=== PATIENT | female | born 1955 | race Caucasian/White ===

== ENCOUNTER 2017-08-23 05:20 | Inpatient (IN) | payer BC ==
[2017-08-11 11:56] VITALS: BMI 32.0
[2017-08-11 12:05] LABS: BASO % 0.6 %; BASO ABS # 0.05 K/uL (0-0.2); EOS % 2.9 %; EOS ABS # 0.23 K/uL (0-0.5); HEMATOCRIT 42.8 % (37-47); HEMOGLOBIN 14.3 g/dL (12.0-16.0); IG# 0.01 K/uL (0.00-0.02); LYMPH % 39.2 %; LYMPH ABS # 3.06 K/uL (1.2-3.4); MEAN CELL VOLUME 89.5 fL (80-100); MEAN CORPUSCULAR HEMOGLOBIN 29.9 pg (25-34); MEAN CORPUSCULAR HGB CONC 33.4 g/dl (32-36); MEAN PLATELET VOLUME 9.7 fL (7.4-10.4); MONO % 7.7 %; NEUT % 49.5 %; NEUT ABS # 3.85 K/uL (1.4-6.5); PLATELET COUNT 348 K/uL (130-400); RED CELL DISTRIBUTION WIDTH CV 14.2 % (11.5-14.5); RED CELL DISTRIBUTION WIDTH SD 46.8 fL (36.4-46.3)
[2017-08-11 12:14] LABS: INR 0.9 (0.9-1.1); PTT PATIENT 24.1 SECONDS (21.0-31.0)
--- NOTE | 2017-08-11 12:30 | PAT Medication Instructions ---
Service Date Aug 11, 2017. Current Home Medication List Acetaminophen (Tylenol), 1,000 MG PO UD PRN for Pain Naproxen (Aleve), 220 MG PO UD PRN for Pain Paroxetine (Paxil), 20 MG PO QPM Medication Instructions For Your Scheduled Surgery -Follow your surgeon's instructions for: Naproxen (Aleve), 220 MG PO UD PRN for Pain - Take the following medications the morning of surgery with a sip of water: Acetaminophen (Tylenol), 1,000 MG PO UD PRN for Pain (if needed, can be taken up to four hours before surgery) - Take the following medications as scheduled the night before surgery: Paroxetine (Paxil), 20 MG PO QPM Acetaminophen (Tylenol), 1,000 MG PO UD PRN for Pain (if needed) If you have any questions please call us at [phone] or [phone] or [phone]
[2017-08-11 12:41] LABS: HEMOGLOBIN A1C 5.8 % (4.5-5.6)
--- NOTE | 2017-08-11 13:02 | DIAGNOSTIC IMAGING REPORT ---
CHEST 2 VIEWS ROUTINE HISTORY: 61 years-old Female PAT preoperative exam. No acute chest complaints COMPARISON: None available TECHNIQUE: PA and lateral views of the chest FINDINGS: Cardiomediastinal and hilar silhouettes are within normal limits. There is no pneumothorax, pleural effusion, focal airspace consolidation or overt pulmonary edema. Degenerative changes are seen within the shoulders and spine. Minimal sigmoidal scoliosis of the spine. IMPRESSION: No acute process. The above report was generated using voice recognition software. It may contain grammatical, syntax or spelling errors. Electronically signed by: Abhishek Koroma M.D. 08/11/2017 1:01 PM Dictated Date/Time: 08/11/2017 1:00 PM
[2017-08-11 13:35] LABS: ALBUMIN 3.9 gm/dl (3.4-5.0); CALCIUM 9.3 mg/dl (8.5-10.1); CREATININE 0.93 mg/dl (0.60-1.20); POTASSIUM 4.1 mmol/L (3.5-5.1)
--- NOTE | 2017-08-11 15:02 | HISTORY & PHYSICAL EXAMINATION ---
DATE OF ADMISSION: 08/23/2017 CHIEF COMPLAINT: Right knee pain. HISTORY OF PRESENT ILLNESS: Rafael is a 61-year-old female with a multiple year history of right knee pain. The patient rates her pain as 7/10. She has pain with her daily activities. She has limited standing and walking tolerance. Pain is worse with weightbearing. The patient has had injections, bracing, home exercise program, and Aleve without relief. She has failed conservative treatment and is scheduled for right knee replacement with Dr. Godoy. PAST MEDICAL HISTORY: Anxiety. She denies heart disease, diabetes or DVT. PAST SURGICAL HISTORY: Tubal ligation, tubal reversal. SOCIAL HISTORY: The patient denies alcohol use. She quit smoking in 2018. She lives in a 2-story home. She is and retired. FAMILY HISTORY: Negative for DVT. MEDICATIONS: Paxil 20 mg daily, Aleve p.r.n. ALLERGIES: None. REVIEW OF SYSTEMS: See HPI. Ten other systems reviewed, all negative. PHYSICAL EXAMINATION: VITAL SIGNS: Height 5 feet 4 inches, weight 184 pounds, BMI 32. GENERAL: This is a well-developed, well-nourished female who is alert and oriented x3. Mood and affect are appropriate. HEENT: Normocephalic, atraumatic. Mucous membranes are moist and intact. NECK: Supple without lymphadenopathy. HEART: Regular rate and rhythm without murmurs, rubs or gallops. LUNGS: Clear to auscultation without wheezes or rhonchi. ABDOMEN: Soft and nontender. Bowel sounds are equal and active. EXTREMITIES: No ecchymosis, redness or warmth. Thigh and calf are soft and nontender. She has varus deformity. Range of motion is from 5-110 degrees with +1 laxity. She is neurovascularly intact with +5/5 strength. She has medial joint line tenderness. IMPRESSION: Degenerative joint disease, right knee. PLAN: The patient will be admitted for a right total knee arthroplasty. We will plan on aspirin for DVT prophylaxis. The patient will likely do home health upon discharge.
[~2017-08-23] VITALS: Ht 160 cm; Wt 83.1 kg
[2017-08-23] VITALS (9 sets, daily range): BP systolic 102–142; BP diastolic 53–80; PULSE 67–84; TEMP 36.5–37.2; O2SAT 94–99; Ht 160 cm; Wt 83.1 kg
[~2017-08-23 05:20] MED LIST: ACET-1256 PO; NAPR1TAB9 PO; PARO1TAB27 PO
[2017-08-23] MEDS ORDERED: LACTATED RINGER'S 1000ML 1,000 ML IV SCH (06:00)
[2017-08-23] MEDS ORDERED: METOCLOPRAMIDE HCL 10 MG TAB PO SCH (06:00)
[2017-08-23] MEDS ORDERED: ROPIVACAINE 5MG/ML 30 ML 150 MG, BUPIVACAINE 0.5% MPF INJ 30 ML, EpINEphrine HCL INJ 0.... INFIL SCH ×8 (06:00)
[2017-08-23] MEDS ORDERED: CeleBREX 200 MG CAP PO SCH (06:00)
[2017-08-23] MEDS ORDERED: GABAPENTIN 600 MG PO SCH (06:00)
[2017-08-23] MEDS ORDERED: ACETAMINOPHEN 500 MG TAB PO SCH (06:00)
[2017-08-23] MEDS ORDERED: FAMOTIDINE 20 MG TAB PO SCH (06:00)
[2017-08-23] MEDS ORDERED: CEFAZOLIN 2000MG IV PUSH 15 ML IV SCH (06:00)
[2017-08-23] MEDS ORDERED: DEXAMETHASONE 4 MG TAB PO SCH (06:00)
[2017-08-23] MEDS: TRANEXAMIC ACID INJ 1,000 MG x 2 Bags IV SCH ×4 (06:30→06:50)
[2017-08-23] MEDS ORDERED: BUPIVACAINE 0.5 % 5 MG/1 ML PF 10ML VIAL ONE (06:31)
[2017-08-23] MEDS ORDERED: ROPIVACAINE 0.5% 5 MG/ML 30 ML VIAL ONE (06:31)
[2017-08-23] MEDS ORDERED: MIDAZOLAM HCL 1 MG/ML 2ML VIAL ONE (06:40)
[2017-08-23] MEDS ORDERED: ORTHO JOINT ANESTHETIC ONE (06:57)
[2017-08-23] MEDS ORDERED: BACITRACIN 50000 UNIT VIAL ONE (06:58)
[2017-08-23] MEDS ORDERED: POVIDONE-IODINE OP SOLN 30 ML BTL ONE (06:58)
--- NOTE | 2017-08-23 07:03 | History & Physical Bridge Note ---
H&P Re-Evaluation Bridge Note: I have examined the patient, reviewed the History & Physical and in the interval since the performance of the History & Physical I have noted the following changes of clinical significance: No changes noted
[2017-08-23] MEDS ORDERED: DEXAMETHASONE SOD INJ 4 MG/ML VIAL ONE (07:32)
[2017-08-23] MEDS ORDERED: PROPOFOL IV EMULSION 10 MG/ML 20 ML VIAL IV ONE (07:32)
[2017-08-23] MEDS ORDERED: ONDANSETRON INJ 2 MG/ML 2 ML VIAL ONE (07:34)
[2017-08-23] MEDS ORDERED: MEPERIDINE HCL 25 MG/ML CARP IV PRN (08:45)
[2017-08-23] MEDS ORDERED: ONDANSETRON INJ 2 MG/ML 2 ML VIAL IV PRN ×2 (08:45→09:00)
[2017-08-23] MEDS ORDERED: HYDROmorphone INJ 1 MG/ML SYR IV PRN (08:45)
[2017-08-23] MEDS ORDERED: ATROPINE SULFATE 0.1 MG/ML 5ML SYR IV PRN (08:45)
[2017-08-23] MEDS ORDERED: LABETALOL HCL IV 5 MG/ML 20ML IV PRN (08:45)
[2017-08-23] MEDS ORDERED: EpHEDrine SULFATE INJ 50 MG/ML AMP IV PRN (08:45)
[2017-08-23] MEDS ORDERED: FENTANYL CITRATE INJ 50 MCG/1 ML 2 ML VIAL IV PRN (08:45)
--- NOTE | 2017-08-23 08:53 | [facility] Post Operative Brief Note ---
Immediate Operative Summary Operative Date Aug 23, 2017. Pre-Operative Diagnosis Right knee DJD Post-Operative Diagnosis Right knee DJD Procedure(s) Performed Right TKA Surgeon Dr. Godoy Admissions Consultant Surgeon(s) Maria Del Rosario Vela PA-C Estimated Blood Loss 50 Findings Consistent with Post-Op Diagnosis Fluids (cc crystalloids) 1200 Specimens none Drains None Anesthesia Type MAC Spinal Regional Complication(s) none Disposition Accompanied Pt To Recover: no Disposition: Recovery Room / PACU
[2017-08-23] MEDS: PANTOprazole SOD 40 MG TAB PO SCH (09:00)
[2017-08-23] MEDS ORDERED: MoRPHine SULFATE 4 MG/ML 1 ML CARP\\VIAL IV PRN (09:00)
[2017-08-23] MEDS: MULTIVITAMIN TAB PO SCH (09:00)
--- NOTE | 2017-08-23 09:49 | DIAGNOSTIC IMAGING REPORT ---
R KNEE 1 OR 2 VIEWS ROUTINE CLINICAL HISTORY: Postoperative evaluation. Right knee osteoarthritis. COMPARISON: None FINDINGS: Alignment of the total right knee arthroplasty is anatomic. There is no fracture or unexpected radiopaque foreign body. IMPRESSION: Expected findings following total right knee arthroplasty. Electronically signed by: Ash Horan M.D. 08/23/2017 9:48 AM Dictated Date/Time: 08/23/2017 9:48 AM
--- NOTE | 2017-08-23 13:50 | Anesthesiology Progress Note ---
Anesthesia Post Op Note Date & Time Aug 23, 2017 at 13:50 Vital Signs Pain Intensity: 0.0 Vital Signs Past 12 Hours Date Time Temp Pulse Resp B/P (MAP) Pulse Ox O2 Delivery O2 Flow Rate FiO2 08/23/17 12:51 36.6 84 16 104/62 (76) 97 2.0 08/23/17 11:55 78 16 115/53 (73) 98 2.0 08/23/17 11:11 74 16 112/66 (81) 98 2.0 08/23/17 10:45 Nasal Cannula 2.0 08/23/17 10:45 Nasal Cannula 2.0 08/23/17 10:45 37.0 83 16 112/68 (83) 94 Nasal Cannula 2.0 08/23/17 10:34 78 18 99 08/23/17 10:34 78 18 08/23/17 10:31 105/61 08/23/17 10:29 76 16 08/23/17 10:29 76 16 98 08/23/17 10:26 116/58 08/23/17 10:24 77 15 08/23/17 10:24 77 15 98 08/23/17 10:23 81 17 97 08/23/17 10:23 81 17 08/23/17 10:21 111/62 08/23/17 10:20 36.6 78 16 111/62 (78) 98 Nasal Cannula 2 08/23/17 10:18 75 16 08/23/17 10:18 75 16 98 08/23/17 10:17 74 16 99 08/23/17 10:17 74 16 08/23/17 10:16 108/53 08/23/17 10:12 73 15 98 08/23/17 10:12 73 15 08/23/17 10:11 115/59 08/23/17 10:08 74 16 98 08/23/17 10:08 74 16 08/23/17 10:06 115/61 08/23/17 10:03 72 17 08/23/17 10:03 72 17 100 08/23/17 10:01 109/60 08/23/17 09:58 72 14 08/23/17 09:58 71 14 100 08/23/17 09:56 110/57 08/23/17 09:53 71 15 08/23/17 09:53 71 15 100 08/23/17 09:51 110/58 08/23/17 09:48 73 16 08/23/17 09:48 74 16 100 08/23/17 09:46 106/60 08/23/17 09:43 76 26 100 08/23/17 09:43 75 26 08/23/17 09:41 106/57 08/23/17 09:38 74 15 08/23/17 09:38 74 15 100 08/23/17 09:36 103/59 08/23/17 09:33 76 14 08/23/17 09:33 75 14 100 08/23/17 09:31 104/60 08/23/17 09:28 75 23 08/23/17 09:28 75 23 100 08/23/17 09:26 97/52 08/23/17 09:24 107/50 08/23/17 09:23 78 17 100 08/23/17 09:23 78 17 08/23/17 09:23 36.1 76 18 107/50 (62) 100 Oxymask 10 08/23/17 05:52 37.1 75 18 142/80 98 Room Air Notes Mental Status: alert / awake / arousable, participated in evaluation Pt Amnestic to Procedure: Yes Nausea / Vomiting: adequately controlled Pain: adequately controlled Airway Patency, RR, SpO2: stable & adequate BP & HR: stable & adequate Hydration State: stable & adequate Neuraxial Anesthesia: was administered, sensory block is resolving Anesthetic Complications: no major complications apparent
[2017-08-23] MEDS: KETOROLAC TROMETHAMINE 30 MG/ML VIAL IV. SCH ×2 (14:15→19:38)
[2017-08-23] MEDS: ACETAMINOPHEN 500 MG TAB PO SCH ×2 (14:15→22:13)
[2017-08-23] MEDS: SODIUM CHLORIDE 0.9% 1000ML 1,000 ML IV SCH ×2 (14:16→22:14)
[2017-08-23] MEDS: CEFAZOLIN IV 2,000 MG in SYRINGE 0 ML IV SCH (16:23)
[2017-08-23] MEDS: OXYCODONE HCL IR 5 MG TAB (IMMEDIATE RELEASE) PO PRN ×2 (16:24→20:49)
--- NOTE | 2017-08-23 17:26 | Orthopedic Progress Note ---
Orthopedic Progress Note Date of Service Aug 23, 2017. Subjective Additional Notes: Post-operative progress note Patient seen sitting in bed, comfortable, pain well controlled, no acute issues. Objective NAD, AOx3 RLE: NVSI +EHL/FHL/TA/GS SILT grossly, CR< 2 seconds, +2 DP pulse, compartments soft NT, dressing CDI Date Time Temp Pulse Resp B/P (MAP) Pulse Ox O2 Delivery O2 Flow Rate FiO2 08/23/17 15:06 37.2 77 16 112/66 (81) 99 Nasal Cannula 08/23/17 13:53 36.9 84 16 102/60 (74) 99 2.0 08/23/17 12:51 36.6 84 16 104/62 (76) 97 2.0 08/23/17 11:55 78 16 115/53 (73) 98 2.0 08/23/17 11:11 74 16 112/66 (81) 98 2.0 08/23/17 10:45 Nasal Cannula 2.0 08/23/17 10:45 Nasal Cannula 2.0 08/23/17 10:45 37.0 83 16 112/68 (83) 94 Nasal Cannula 2.0 08/23/17 10:34 78 18 99 08/23/17 10:34 78 18 08/23/17 10:31 105/61 08/23/17 10:29 76 16 08/23/17 10:29 76 16 98 08/23/17 10:26 116/58 08/23/17 10:24 77 15 08/23/17 10:24 77 15 98 08/23/17 10:23 81 17 97 08/23/17 10:23 81 17 08/23/17 10:21 111/62 08/23/17 10:20 36.6 78 16 111/62 (78) 98 Nasal Cannula 2 08/23/17 10:18 75 16 08/23/17 10:18 75 16 98 08/23/17 10:17 74 16 99 08/23/17 10:17 74 16 08/23/17 10:16 108/53 08/23/17 10:12 73 15 98 08/23/17 10:12 73 15 08/23/17 10:11 115/59 08/23/17 10:08 74 16 98 08/23/17 10:08 74 16 08/23/17 10:06 115/61 18 10:03 72 17 18 10:03 72 17 100 18 10:01 109/60 08/23/17 09:58 72 14 18 09:58 71 14 100 18 09:56 110/57 18 09:53 71 15 18 09:53 71 15 100 08/23/17 09:51 110/58 08/23/17 09:48 73 16 08/23/17 09:48 74 16 100 08/23/17 09:46 106/60 08/23/17 09:43 76 26 100 08/23/17 09:43 75 26 08/23/17 09:41 106/57 08/23/17 09:38 74 15 08/23/17 09:38 74 15 100 08/23/17 09:36 103/59 08/23/17 09:33 76 14 08/23/17 09:33 75 14 100 08/23/17 09:31 104/60 08/23/17 09:28 75 23 08/23/17 09:28 75 23 100 08/23/17 09:26 97/52 08/23/17 09:24 107/50 08/23/17 09:23 78 17 100 08/23/17 09:23 78 17 08/23/17 09:23 36.1 76 18 107/50 (62) 100 Oxymask 10 08/23/17 05:52 37.1 75 18 142/80 98 Room Air Assessment & Plan Assessment: s/p R TKA Plan: -Ancef x 24 -DVT PPX: ASA BID -WBAT RLE -PT/OT -PO XR: well fixed, well aligned total knee prosthesis, without fracture or dislocation -am labs
[2017-08-23] MEDS: DOCUSATE SODIUM 100 MG CAP PO SCH (20:49)
[2017-08-23] MEDS: ASPIRIN 325 MG ECTAB PO SCH (20:50)
[2017-08-23] MEDS ORDERED: SENNA 8.6 MG TAB PO SCH (21:00)
[2017-08-23] MEDS ORDERED: PAROXETINE 20 MG TAB PO SCH (21:00)
[2017-08-23] MEDS ORDERED: NURSING VERBAL MED ORDER ONE (22:45)
[2017-08-24] MEDS: CEFAZOLIN IV 2,000 MG in SYRINGE 0 ML IV SCH (00:37)
[2017-08-24] MEDS: SODIUM CHLORIDE 0.9% 1000ML 1,000 ML IV SCH (00:37)
[2017-08-24] MEDS: OXYCODONE HCL IR 5 MG TAB (IMMEDIATE RELEASE) PO PRN ×4 (00:40→12:40)
[2017-08-24] MEDS: KETOROLAC TROMETHAMINE 30 MG/ML VIAL IV. SCH ×2 (02:16→07:25)
[2017-08-24 02:56] VITALS: BP 106/63; PULSE 72; TEMP 36.8; O2SAT 96
[2017-08-24] MEDS: ACETAMINOPHEN 500 MG TAB PO SCH (05:02)
[2017-08-24 05:47] LABS: HEMATOCRIT 34.4 % (37-47); HEMOGLOBIN 11.3 g/dL (12.0-16.0); MEAN CELL VOLUME 89.1 fL (80-100); MEAN CORPUSCULAR HEMOGLOBIN 29.3 pg (25-34); MEAN CORPUSCULAR HGB CONC 32.8 g/dl (32-36); MEAN PLATELET VOLUME 9.7 fL (7.4-10.4); PLATELET COUNT 251 K/uL (130-400); RED CELL DISTRIBUTION WIDTH CV 14.5 % (11.5-14.5); RED CELL DISTRIBUTION WIDTH SD 47.4 fL (36.4-46.3); WHITE BLOOD COUNT 14.21 K/uL (4.8-10.8)
[2017-08-24 06:24] LABS: CALCIUM 8.2 mg/dl (8.5-10.1); CREATININE 0.85 mg/dl (0.60-1.20); POTASSIUM 4.2 mmol/L (3.5-5.1)
[2017-08-24 07:43] VITALS: BP 146/67; PULSE 93; TEMP 36.5; O2SAT 97
--- NOTE | 2017-08-24 07:52 | Orthopedic Progress Note ---
Orthopedic Progress Note Date of Service Aug 24, 2017. Subjective Post OP Day: 1 Additional Notes: Patient seen walking in room, doing well, pain well controlled, no acute issues overnight. Objective RLE NVSI +EHL/FHL/TA/GS SILT grossly, CR< 2 seconds, +2 DP pulse, compartments soft NT, dressing CDI Date Time Temp Pulse Resp B/P (MAP) Pulse Ox O2 Delivery O2 Flow Rate FiO2 08/24/17 07:43 36.5 93 17 146/67 (93) 97 Room Air 08/24/17 02:56 36.8 72 14 106/63 (77) 96 Room Air 08/24/17 00:48 Room Air 08/23/17 22:55 36.9 67 14 103/60 (74) 97 Room Air 08/23/17 19:41 36.5 69 16 121/67 (85) 96 Room Air 08/23/17 15:15 Nasal Cannula 2.0 08/23/17 15:06 37.2 77 16 112/66 (81) 99 Nasal Cannula 08/23/17 13:53 36.9 84 16 102/60 (74) 99 2.0 08/23/17 12:51 36.6 84 16 104/62 (76) 97 2.0 08/23/17 11:55 78 16 115/53 (73) 98 2.0 08/23/17 11:11 74 16 112/66 (81) 98 2.0 08/23/17 10:45 Nasal Cannula 2.0 08/23/17 10:45 Nasal Cannula 2.0 08/23/17 10:45 37.0 83 16 112/68 (83) 94 Nasal Cannula 2.0 08/23/17 10:34 78 18 99 08/23/17 10:34 78 18 08/23/17 10:31 105/61 08/23/17 10:29 76 16 08/23/17 10:29 76 16 98 08/23/17 10:26 116/58 08/23/17 10:24 77 15 08/23/17 10:24 77 15 98 08/23/17 10:23 81 17 97 08/23/17 10:23 81 17 08/23/17 10:21 111/62 08/23/17 10:20 36.6 78 16 111/62 (78) 98 Nasal Cannula 2 08/23/17 10:18 75 16 08/23/17 10:18 75 16 98 08/23/17 10:17 74 16 99 08/23/17 10:17 74 16 08/23/17 10:16 108/53 08/23/17 10:12 73 15 98 08/23/17 10:12 73 15 08/23/17 10:11 115/59 08/23/17 10:08 74 16 98 08/23/17 10:08 74 16 08/23/17 10:06 115/61 08/23/17 10:03 72 17 08/23/17 10:03 72 17 100 08/23/17 10:01 109/60 08/23/17 09:58 72 14 08/23/17 09:58 71 14 100 08/23/17 09:56 110/57 08/23/17 09:53 71 15 08/23/17 09:53 71 15 100 08/23/17 09:51 110/58 08/23/17 09:48 73 16 08/23/17 09:48 74 16 100 08/23/17 09:46 106/60 08/23/17 09:43 76 26 100 08/23/17 09:43 75 26 08/23/17 09:41 106/57 08/23/17 09:38 74 15 08/23/17 09:38 74 15 100 08/23/17 09:36 103/59 08/23/17 09:33 76 14 08/23/17 09:33 75 14 100 08/23/17 09:31 104/60 08/23/17 09:28 75 23 08/23/17 09:28 75 23 100 08/23/17 09:26 97/52 08/23/17 09:24 107/50 08/23/17 09:23 78 17 100 08/23/17 09:23 78 17 08/23/17 09:23 36.1 76 18 107/50 (62) 100 Oxymask 10 Laboratory Results 24 Hours: Test 08/24/17 05:29 Hematocrit 34.4 % Hemoglobin 11.3 g/dL Prothromb Time International Ratio 1.0 Prothrombin Time 10.2 SECONDS Assessment & Plan Assessment: s/p R TKA POD#1 Plan: -Ancef x 24 -DVT PPX: ASA BID -WBAT RLE -PT/OT -PO XR: well fixed, well aligned total knee prosthesis, without fracture or dislocation -am labs: Hgb -11.3 -DC planning: Home with , possibly today
[2017-08-24 07:56] VITALS: BP 127/66; PULSE 71; TEMP 36.9; O2SAT 97
[2017-08-24] MEDS ORDERED: CLB200 PO (08:21)
[2017-08-24] MEDS ORDERED: ASPEC325 PO (08:21)
[2017-08-24] MEDS ORDERED: RXC5 PO (08:21)
[2017-08-24] MEDS ORDERED: ONDA-170 PO (08:21)
[2017-08-24] MEDS ORDERED: ACET-1256 PO (08:21)
[2017-08-24] MEDS ORDERED: SENN-61 PO (08:21)
--- NOTE | 2017-08-24 08:22 | Discharge Instructions ---
Discharge Instructions Date of Service Aug 24, 2017. Admission Reason for Admission: Right Knee Osteoarthritis Discharge Discharge Diagnosis / Problem: sp right TKA Discharge Goals Goal(s): Decrease discomfort, Improve function, Increase independence Activity Recommendations Activity Limitations: per Instructions/Follow-up section . Instructions / Follow-Up Instructions / Follow-Up ACTIVITY RECOMMENDATIONS: SELF CARE INSTRUCTIONS AFTER TOTAL KNEE REPLACEMENT A. You may need to continue a physical therapy program after discharge from the hospital. There are several options available to you. Your doctor will assist you in selecting the best one for you. 1. An out-patient facility 2 to 3 times a week for therapy or home therapy. 2. Continue working on all exercises taught to you in the hospital. Your goals should be to increase bending of your knee to 90 degrees and beyond and to fully straighten your knee. B. You may progress at your own pace from walking with a walker or crutches to a cane; then to no assistive devices. C. Make walking a part of your daily routine. Be up as much as comfortable with rest periods throughout the day. Rest with leg elevation is very important. Use the ice wrap frequently for the first 3-4 weeks. D. There are no restrictions on activities. You may ride in a car, shop, participate in seafood processor and all social activities. E. Wear the long elastic stockings (FEDERICO hose) 20 hours a day for 2 weeks after surgery. They can be removed several times a day for laundering and for a bath. F. You may shower, no tub baths until cleared by your doctor. SPECIAL CARE INSTRUCTIONS: VERY IMPORTANT TO READ AND REVIEW A. There are a few signs you need to watch for after you are home. Call [facility] if you notice any of the followin. Increased severe knee pain. Some pain is expected especially when you exercise. 2. Increased swelling in your leg or knee; pain or swelling of the calf muscle in either lower leg. 3. Any fluid drainage from the incision. 4. Shortness of breath or chest pain. B. Please call [facility] at if you have any concerns or questions about your operation or recovery. The doctor or his nurse will return your call promptly. C. You must take antibiotics before dental work, bladder, bowel or other surgery. Your doctor will provide you with a permanent care to carry describing this precaution. IMPORTANT: * REMEMBER TO TAKE ASPIRIN, 325 MG, TWICE DAILY FOR 4 WEEKS UNLESS OTHERWISE DIRECTED. THIS IS YOUR BLOOD THINNER. * HIGH RISK PATIENTS MAY BE PRESCRIBED A STRONGER BLOOD THINNER. THIS WILL BE PROVIDED AT DISCHARGE. * CALL IF INCREASED PAIN, REDNESS, DRAINAGE OR FEVER GREATER THAT 101. * WEAR FEDERICO HOSE 20 HOURS PER DAY FOR 2 WEEKS. * DERMABOND Prineo- This is a mesh tape dressing that is covered with glue. It should remain in place until the incision is properly healed, usually 10-14 days. This dressing is designed to naturally slough off. You may trim the excess mesh tape as it peels off. Incision may be briefly wet in a shower. Dry immediately by blotting with a clean, dry towel. Do not bath or swim until instructed by your doctor. Do not scratch, rub, or pick at the dressing. Do not apply any topical ointments or lotions until dressing is completely removed and/or instructed by your doctor. There may be a small piece of suture material at one end of your incision. Do not pull or trim this. If it is bothersome or catching on clothing, you may cover it with a band-aid. OK TO REMOVE SURGICAL DRESSING (DANIEL WRAP AND ALL GAUZE) TUESDAY, 08/25. FOLLOW UP VISIT: If appointment is not already scheduled: Please call [facility] to make a follow-up appointment for 2 weeks after your surgery at . Current Hospital Diet Patient's current hospital diet: Regular Diet Discharge Diet Recommended Diet: Regular Diet Procedures Procedures Performed: Right TKA Pending Studies Studies pending at discharge: no Laboratory Results Hemoglobin A1c Test 08/11/17 11:47 Range/Units Estimated Average Glucose 120 mg/dl Hemoglobin A1c 5.8 H 4.5-5.6 % Medical Emergencies . Who to Call and When: Medical Emergencies: If at any time you feel your situation is an emergency, please call 911 immediately. . Non-Emergent Contact Non-Emergency issues call your: Surgeon . "Provider Documentation" section prepared by Sun Vela. .
[2017-08-24] MEDS: ASPIRIN 325 MG ECTAB PO SCH (08:49)
[2017-08-24] MEDS: DOCUSATE SODIUM 100 MG CAP PO SCH (08:50)
[2017-08-24] MEDS: MULTIVITAMIN TAB PO SCH (08:51)
[2017-08-24] MEDS: PANTOprazole SOD 40 MG TAB PO SCH (08:51)
[2017-08-24 09:39] VITALS: BP 127/66; PULSE 71; TEMP 36.9; O2SAT 97
[2017-08-24 11:53] VITALS: BP 126/68; PULSE 68; TEMP 36.9; O2SAT 97
[2017-08-24] MEDS ORDERED: CeleBREX 200 MG CAP PO SCH (21:00)
--- NOTE | 2017-08-28 14:54 | [facility] Operative Report ---
Operative Report Operative Date Aug 23, 2017. Pre-Operative Diagnosis Right knee DJD Post-Operative Diagnosis Right knee DJD Procedure(s) Performed Right TKA Surgeon Dr. Godoy Ophthalmic Photographer Surgeon(s) Maria Del Rosario Vela PA-C Estimated Blood Loss 50 Findings see dictated op note Fluids 1200 Specimens none Drains None Anesthesia Type MAC Spinal Regional Complication(s) none Disposition no Recovery Room / PACU Indications The patient is a 61-year-old female presents with long history of severe right knee tricompartmental DJD and failed outpatient conservative treatments including NSAIDs, bracing, injections and home walking/exercise program. The patient's symptoms have progressed to the point where it has been difficult to perform normal activities of daily living. I have indicated the patient for a right total knee arthroplasty, the risks and benefits and complications of the procedure include but are not limited to infection bleeding damage to bone, nerves, vessels, surrounding soft tissue, blood clots, loss of function, leg length discrepancy, dislocation, failure of the components, need for additional surgery and . The patient wished to proceed with surgery at this time and informed consent was obtained. Appropriate clearances were obtained. Description of Procedure Following induction of spinal anesthesia, a tourniquet was applied to the proximal aspect of the thigh and the patient's right leg was prepped and draped in the usual sterile manner. A timeout was performed and site antoni verified. Limb was exsanguinated with an esmarch bandage and tourniquet was inflated to 300 mmHg. A longitudinal midline incision was made over the anterior knee. Subcutaneous tissue was sharply dissected down to fascia. Electrocautery was used for hemostasis. Next a parapatellar arthrotomy was performed. Patella was everted and the knee was flexed. A cano retractor was used to expose the synovium above on the anterior aspect of the femur and removed down to bone. Next, the anterior fat pad was removed to aid in visualization. The medial face of the tibia was cleared of soft tissue first with a bovie and a weinberg elevator. This tissue was retracted posteriorly using a blunt hohmann. Next the extramedullary tibial cutting guide was placed to the anterior aspect of the tibia. The tibial resection level was set taking 2mm from the defective tibial condyle. The medial and lateral collateral ligament were protected with that homans. The tibia guide was removed and proximal tibial bone fragment removed utilizing straight osteotome, electrocautery and maik. Next, the distal femur intramedullary canal was accessed utilizing the step drill. The intramedullary distal femur cutting guide was placed into the canal and pinned into place. The distal femur was cut on the 5 degrees setting. Next the cutting guide was removed and the femur was sized. Care was taken to ensure appropriate external rotation and 3 degree holes were drilled. A size 9 4-in-1 cutting block was placed on the distal end of the femur and secured into place with two short headed screws. Two bent homans were placed to protect the medial and lateral collateral ligaments. The oscillating saw was used to cut anterior, posterior, anterior chamfer and posterior chamfer. The four and one cutting block was removed and bone fragments excised. Laminar sas administrator was placed laterally and the ACL and PCL were removed followed by the medial meniscus and posterior medial osteophytes. Aquamantys was utilized for any posterior medial bleeders and Orthomix injected into the posterior medial capsule. A laminar sas administrator was then placed in the medial compartment and the lateral meniscus and posterior osteophytes were removed. Aquamantys was utilized for any posterior lateral bleeders and Orthomix injected into the posterior lateral capsule. Next, drop jennifer and spacer block were placed with the leg in flexion and extension to assess alignment and flexion/extension gaps. Next the proximal tibia was assessed and two bent Homans were placed medial and lateral to aid in visualization. The appropriate tibia size and rotation was selected and a size E tibial plate was pinned into place with appropriate rotation. Preparation of the tibia was completed utilizing the matching tibial drill and broach. I then turned my attention back to the distal femur in a trial femoral component was impacted into place. Appropriate femoral width was assessed and selected. Next the femur PS box cut guide was placed and cut made with the reciprocal saw and the PS box provisional placed. A trial size 10 PS tibia articular tray was placed and varus-valgus balance assessed in 0 degrees of extension and 30, 60 and 90 degrees of flexion. A final tibial articular surface size 10 PS was chosen. Assess was gained to the patella and caliper utilized to measure width. The patella reamer was utilized and remaining bone removed with oscillating saw. A size 29mm patella button was selected and the patella pegs drilled. Trial patella button was placed and tracking was assessed. The knee was found to be well balanced, well aligned with excellent patella tracking. The trials were removed and final components were obtained and assembled. The knee was irrigated copiously with sterile saline solution mixed with bacitracin. Access to the proximal tibia was once again obtained utilizing to the homaamanuel and the proximal tibia and distal femur were dried with lap sponges. The final components were cemented into place and all excess cement was removed. A trial tibial articular surface was placed while cement hardened. Knee stability was once again assessed and the final component inserted. The knee was injected with the remaining Orthomix solution and irrigated once more with sterile saline solution mixed with bacitracin. The capsulotomy was closed with #1 Vicryl followed by subcutaneous closure with 2-0 Vicryl suture and a 3- 0 V-lock suture. Skin closure was performed using Prineo dressing followed by Mohan, 4 x 4s and sara wrap. The patient tolerated the procedure well and was taken to the PACU in stable condition. Due to the complex nature of the procedure, the entire surgery was performed with the operational assistance of Maria Del Rosario Vela PA-C. The pharmaceutical assistant, under direct supervision, was involved in the actual performance of all aspects of the surgical procedure including patient positioning, hemostasis, tissue retraction, instrument management and wound closure. I attest to the content of the Intraoperative Record and any orders documented therein. Any exceptions are noted below.
== END 2017-08-24 14:20 | disposition home health service (06) | DRG 470 ==
LOC: C.ACU 05:20 → C.3E 06:50 → ENRESERV 10:10
PROVIDERS: ADMIT Orthopaedic Surgery; ATTEND Orthopaedic Surgery
PROC: 0SRC0J9 Replacement of Right Knee Joint with Synthetic Substitute, Cemented, Open Approach (ICD-10-PCS; principal; 2017-08-23 07:15)
DX: M17.11 Unilateral primary osteoarthritis, right knee (principal); F41.9 Anxiety disorder, unspecified; E66.9 Obesity, unspecified; Z68.32 Body mass index [BMI] 32.0-32.9, adult; Z87.891 Personal history of nicotine dependence; Z79.899 Other long term (current) drug therapy